=== PATIENT | female | born 1960 | race Caucasian/White ===

== ENCOUNTER 2019-07-13 07:18 | Outpatient (CLI) | payer OTHER, SELFPAY ==
--- NOTE | ~2019-07-13 | MM_ITS ---
EXAMINATION: MM screening lenny BI w shira HISTORY: Screening mammogram TECHNIQUE: Craniocaudal and mediolateral oblique 3-D tomosynthesis images were obtained and synthetic 2-D images were generated. CAD analysis was submitted and interpreted. COMPARISON: Comparison to multiple prior studies sequentially, with oldest reviewed study dated 07/2015. BREAST PARENCHYMAL COMPOSITION: The breasts are heterogeneously dense, which may obscure small masses . FINDINGS: There are benign breast calcifications. There is no evidence of suspicious mass, calcificat ion, or architectural distortion to suggest malignancy in either breast. There has been no suspicious interval change. IMPRESSION: 1. No mammographic evidence of malignancy. 2. Recommend routine screening mammography in one year. BI-RADS Category 2: Benign finding(s). Reviewed, dictated and finalized at location A.
== END 2019-07-13 07:19 | disposition home or self-care (01) ==
LOC: ANHIMG 07:26
PROVIDERS: Visit Provider Obstetrics & Gynecology
DX: Z12.31 Encounter for screening mammogram for malignant neoplasm of breast (principal)
CPT/HCPCS: 77063; 77067

== ENCOUNTER 2020-09-26 14:57 | Outpatient (CLI) | payer OTHER, SELFPAY ==
--- NOTE | ~2020-09-26 | MM_ITS ---
EXAMINATION: MM screening lenny BI w shira HISTORY: Screening TECHNIQUE: Craniocaudal and mediolateral oblique 3-D tomosynthesis images were obtained and synthetic 2-D images were generated. CAD analysis was submitted and interpreted. COMPARISON: Comparison to multiple prior studies sequentially, with oldest reviewed study dated 07/2015. BREAST PARENCHYMAL COMPOSITION: The breasts are heterogeneously dense, which may obscure small masses . FINDINGS: There are developing bilateral breast masses which are obscured by fibroglandular tissue. T here are scattered benign-appearing breast calcifications. No architectural distortion is identified. IMPRESSION: 1. Developing bilateral breast masses. 2. Additional mammographic views and possible breast ultrasound are recommended. BI-RADS Category 0: Incomplete: Needs additional imaging evaluation. Reviewed, dictated and finalized at location A. IMPRESSION: 1. Developing bilateral breast masses. 2. Additional mammographic views and possible breast ultrasound are recommended . BI-RADS Category 0: Incomplete: Needs additional imaging evaluation.
== END 2020-09-26 14:58 | disposition home or self-care (01) ==
LOC: ANHIMG 15:01
PROVIDERS: PCP Internal Medicine; Visit Provider Obstetrics & Gynecology
DX: Z12.31 Encounter for screening mammogram for malignant neoplasm of breast (principal); R92.8 Other abnormal and inconclusive findings on diagnostic imaging of breast
CPT/HCPCS: 77063; 77067

== ENCOUNTER 2020-11-12 11:55 | Outpatient (CLI) | payer OTHER, SELFPAY ==
--- NOTE | ~2020-11-12 | MMUS_ITS ---
EXAMINATION: MM diagnostic lenny BI w shira, US breast BI complete HISTORY: Developing bilateral breast masses reported on 09/26/2020 bilateral screening mammogram TECHNIQUE: Additional 3-D tomosynthesis images of both breasts were performed and synthetic 2-D image s were generated. CAD analysis was submitted and interpreted. High resolution bilateral complete eliana st ultrasound was performed. COMPARISON: 09/26/2020 bilateral digital screening mammogram BREAST PARENCHYMAL COMPOSITION: The breasts are heterogeneously dense, which may obscure small masses . FINDINGS: MAMMOGRAPHIC FINDINGS: There are multiple bilateral circumscribed breast masses measuring at least 10 mm or greater dimensio n. No suspicious mass or architectural distortion or malignant calcification, skin thickening or retract ion is evident. ULTRASOUND: No suspicious solid lesion or shadowing of either breast is evident. Right breast: 4:00 subareolar: 10.7 x 5.6 x 13.1 mm simple cyst 9:00 7 cm from nipple: 4.4 x 4.6 x 16.9 mm cyst 11:00: 4 mm cyst Left breast: 12:00: 9.6 mm simple cyst IMPRESSION: 1. Benign findings: Bilateral breast cysts 2. Routine mammographic screening is recommended BI-RADS Category 2: Benign finding(s). Reviewed, dictated and finalized at location A. IMPRESSION: 1. Benign findings: Bilateral breast cysts 2. Routine mammographic screening is recommended BI-RADS Category 2: Benign finding(s).
== END 2020-11-12 11:56 | disposition home or self-care (01) ==
PROVIDERS: PCP Internal Medicine; Visit Provider Student in an Organized Health Care Education/Training Program
DX: R92.8 Other abnormal and inconclusive findings on diagnostic imaging of breast (principal)
CPT/HCPCS: 76641; 77062; 77066; G0279

== ENCOUNTER 2021-09-16 07:58 | Outpatient (CLI) | payer OTHER, SELFPAY ==
--- NOTE | 2021-09-16 11:00 | NEURO_ITS ---
Impression: # Complains of numbness of left hand. # Evolving left Carpal Tunnel Syndrome. 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 # Normal needle/EMG exam. Nerve Conduction Studies Anti Sensory Summary Table Stim Site NR Peak (ms) P-T Amp (?V) Site1 Site2 Delta-P (ms) Dist (cm) Arturo (m/s) Left Median Anti Sensory (2-3nd Digit) Wrist 3.2 77.9 Wrist 2-3nd Digit 3.2 14.0 44 Wrist 3.2 79.7 Wrist 2-3nd Digit 3.2 14.0 44 Left Radial Anti Sensory (Base 1st Digit) Wrist 2.3 38.2 Wrist Base 1st Digit 2.3 0.0 Left Ulnar Anti Sensory (5th Digit) Wrist 2.5 70.7 Wrist 5th Digit 2.5 14.0 56 Motor Summary Table Stim Site NR Onset (ms) O-P Amp (mV) Site1 Site2 Delta-0 (ms) Dist (cm) Arturo (m/s) Left Median Motor (Abd Poll Brev) Wrist 3.4 2.4 Elbow Wrist 4.9 29.0 59 Elbow 8.3 2.3 Left Ulnar Motor (Abd Dig Minimi) Wrist 2.3 5.4 A Elbow Wrist 5.4 29.0 54 A Elbow 7.7 4.7 B Elbow Wrist 3.8 21.0 55 B Elbow 6.1 4.7 F Wave Studies NR F-Lat (ms) L-R F-Lat (ms) Left Median (Mrkrs) (Abd Poll Brev) 27.11 Left Ulnar (Mrkrs) (Abd Dig Min) 27.70 EMG Side Muscle Nerve Root Ins Act Fibs Amp Dur Recrt Comment Left 1stDorInt Ulnar C8-T1 Nml Nml Nml Nml Nml Left Ext Indicis Radial (Post Int) C7-8 Nml Nml Nml Nml Nml Left Ext Digitorum Radial (Post Int) C7-8 Nml Nml Nml Nml Nml Left BrachioRad Radial C5-6 Nml Nml Nml Nml Nml Left PronatorTeres Median C6-7 Nml Nml Nml Nml Nml Left Abd Poll Brev Median C8-T1 Nml Nml Nml Nml Nml MTDD
== END 2021-09-16 07:59 | disposition home or self-care (01) ==
PROVIDERS: PCP Physician Assistant; Visit Provider Internal Medicine
DX: R20.0 Anesthesia of skin (principal); G56.02 Carpal tunnel syndrome, left upper limb; G56.22 Lesion of ulnar nerve, left upper limb
CPT/HCPCS: 95886; 95909

== ENCOUNTER 2022-01-19 07:01 | Outpatient (CLI) | payer OTHER, SELFPAY ==
--- NOTE | ~2022-01-19 | MM_ITS ---
EXAMINATION: MM screening lenny BI w shira HISTORY: Screening TECHNIQUE: Craniocaudal and mediolateral oblique 3-D tomosynthesis images were obtained and synthetic 2-D images were generated. CAD analysis was submitted and interpreted. COMPARISON: Comparison to multiple prior studies sequentially, with oldest reviewed study dated 05/18. BREAST PARENCHYMAL COMPOSITION: The breasts are heterogeneously dense, which may obscure small masses FINDINGS: Bilateral breast asymmetries/masses are unchanged, previously characterized as cysts by ulmehreen briscoe. There is no evidence of suspicious mass, calcification, or architectural distortion to sugge st malignancy in either breast. There has been no suspicious interval change. IMPRESSION: 1. No mammographic evidence of malignancy. 2. Recommend routine screening mammography in one year. BI-RADS Category 2: Benign finding(s). Reviewed, dictated and finalized at location A. HERIZATION FIELD TECHNICIAN
== END 2022-01-19 07:02 | disposition home or self-care (01) ==
LOC: ANHIMG 07:04
PROVIDERS: PCP Internal Medicine; Visit Provider Obstetrics & Gynecology
DX: Z12.31 Encounter for screening mammogram for malignant neoplasm of breast (principal)
CPT/HCPCS: 77063; 77067

== ENCOUNTER 2023-02-01 07:00 | Outpatient (NON) | payer OTHER, SELFPAY | END 2023-02-01 07:01 | disposition home or self-care (01) | PROVIDERS: PCP Physician Assistant; Visit Provider Internal Medicine Gastroenterology | DX: Z12.11 Encounter for screening for malignant neoplasm of colon (principal) | CPT/HCPCS: 88305 ==

== ENCOUNTER 2023-02-01 11:05 | Day surgery (SDC) | payer OTHER, SELFPAY ==
[2023-01-21 14:16] VITALS: BMI 29.2
--- NOTE | 2023-01-27 13:09 | PM.HPGS ---
History of Present Illness History of Present Illness Consent: Risks, benefits, and alternatives have been discussed and questions answered. Patient agrees to proceed with procedure. Chief complaint: History of Polyps Narrative: Lissy De La Garza is a 62 year old female Referred for colon cancer screening. She had a tubular adenoma removed about 7 years ago. Review of Systems Review of Systems: All systems reviewed & are unremarkable except as noted in HPI and below PMFSH Family History Family History Mother Dementia Sibling , 02/17/18 Cancer Social History Social History Smoking packs per day: 1 Smoking cigarettes per day: 20.0 Years smoked: 45 Smoking pack-years: 45.00 Smoking status: Current some day smoker Tobacco type: cigarettes Second hand tobacco smoke exposure: Yes Smoking end date: 03/24/21 Additional smoking assessment comments: PT STATES SHE ONLY SMOKES OCCASIONALLY NOW. Alcohol intake: never Drinks per week: 1 Substance use: never Substance use type: does not use Lack of Transportation: No Lack of Food: Never True Current Housing: I Have Housing Concerned About Future Housing: No Difficulty Paying Gas/Electric Bills: No Difficulty Paying for Meds: No Currently Unemployed: No Education: High School Diploma/GED Difficulty w/ Childcare or Family Care: No Living arrangements: alone Occupation/Education: occupation Additional occupation/education comments: Gender identity (if verbalized by the patient): Female Sexual Orientation (if Verbalized by the Patient): Straight or Heterosexual Spiritual care concerns: No Meds Home Medications and Allergies Home Medications Medication Instructions Recorded Confirmed Type estradiol 0.025 mg/24 hr 1 patch transdermal 2XW 08/29/19 02/01/23 History semiweekly transdermal patch (Vivelle-Dot) montelukast 10 mg tablet 10 mg PO DAILY 08/29/19 02/01/23 History (Singulair) losartan 50 mg tablet 50 mg PO DAILY #90 tabs 11/17/22 02/01/23 Rx ascorbate calcium (vitamin C) 500 500 mg PO DAILY 01/21/23 02/01/23 History mg tablet calcium citrate 200 mg 1 tablet PO DAILY 01/21/23 02/01/23 History ywrpsbr-sijx-uwq D3 200 kqut-R2-xirmpoj tablet (ADVANCED Calcium) levothyroxine 112 mcg tablet 112 mcg PO DAILY #90 tabs 01/21/23 02/01/23 Rx vitamin B complex (B 1 tablet PO DAILY 01/21/23 02/01/23 History Complex-Vitamin B12 tablet) Allergies Allergy/AdvReac Type Severity Reaction Status Date / Time No Known Allergies Allergy Verified 02/01/23 12:06 Exam Const: General: alert Orientation/consciousness: patient oriented x3 Resp: Auscultation: clear to auscultation bilaterally Cardio: Rhythm: regular rhythm GI: GI Palp: Yes Soft to palpation and No Tenderness to palpation present (GI) Neuro: General: patient oriented x3 Assessment and Plan Assessment and plan (1) Colon cancer screening: Code(s): Z12.11 - Encounter for screening for malignant neoplasm of colon Status: Acute Assessment and Plan: Colonoscopy with possible biopsy or polypectomy or cautery or injection of substances.
[2023-02-01 12:07] VITALS: BP 129/78; PULSE 67; RESP 16; TEMP 36.7; O2SAT 100
--- NOTE | 2023-02-01 12:17 | WPDANESEPPF ---
Anes - Initial Pre Proc Eval Procedure: Operation Date: 02/01/23 13:30 Proposed Procedures p Colonoscopy - Dionisio Shelton MD Date/Time: 02/01/23 12:17 Surgeon: Dionisio Shelton MD Pre Op Diagnosis: History of Polyps Patient Data Age: 62 Gender: F Height: 1.68 m Weight: 81.4 kg Last Vital Signs Temp 36.7 C 02/01/23 12:07 Pulse 67 02/01/23 12:07 Resp 16 02/01/23 12:07 BP 129/78 02/01/23 12:07 Pulse Ox 100 02/01/23 12:07 O2 Del Method Room Air 02/01/23 12:07 Allergies Allergy/AdvReac Type Severity Reaction Status Date / Time No Known Allergies Allergy Verified 02/01/23 12:06 Home Medications Medication Instructions Recorded Confirmed Type estradiol 0.025 mg/24 hr 1 patch transdermal 2XW 08/29/19 02/01/23 History semiweekly transdermal patch (Vivelle-Dot) montelukast 10 mg tablet 10 mg PO DAILY 08/29/19 02/01/23 History (Singulair) losartan 50 mg tablet 50 mg PO DAILY #90 tabs 11/17/22 02/01/23 Rx ascorbate calcium (vitamin C) 500 500 mg PO DAILY 01/21/23 02/01/23 History mg tablet calcium citrate 200 mg 1 tablet PO DAILY 01/21/23 02/01/23 History vgatuzi-jwlg-gsl D3 200 sghb-H0-ypjzenq tablet (ADVANCED Calcium) levothyroxine 112 mcg tablet 112 mcg PO DAILY #90 tabs 01/21/23 02/01/23 Rx vitamin B complex (B 1 tablet PO DAILY 01/21/23 02/01/23 History Complex-Vitamin B12 tablet) Patient hx anesthesia problems: none Family hx anesthesia problems: none Results Review: All pre-operative results and documents have been reviewed as part of the pre-operative evaluation. [facility] Family History Family History Mother Dementia Sibling , 02/17/18 Cancer Social History Social History Smoking packs per day: 1 Smoking cigarettes per day: 20.0 Years smoked: 45 Smoking pack-years: 45.00 Smoking status: Current some day smoker Tobacco type: cigarettes Second hand tobacco smoke exposure: Yes Smoking end date: 03/24/21 Additional smoking assessment comments: PT STATES SHE ONLY SMOKES OCCASIONALLY NOW. 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 Gender identity (if verbalized by the patient): Female Sexual Orientation (if Verbalized by the Patient): Straight or Heterosexual Spiritual care concerns: No Anes - Eval Final PreProcedure Day of Procedure 02/01/23 12:17 Patient weight: overweight Heart: regular rate and rhythm Lungs: decreased breath sounds Airway: Mallampati scale class II Neurological: alert and oriented Last oral intake: >/= 8 hours ASA classification: III Emergent: no Anesthetic plan: proceed Anesthesia type and monitoring: general GIVS and standard monitoring Results Review: All pre-operative results and documents have been reviewed as part of the pre-operative evaluation. Informed Consent: The patient's anesthetic plan and its attendant risks and benefits were discussed with the patient/family/POA. Questions were solicited and answers provided to the satisfaction of the patient/family/POA.
[2023-02-01] MEDS: LACTATED RINGERS 1,000 ML 150 ML IV CONT (12:19)
[2023-02-01 12:58] VITALS: BP 116/66; PULSE 60; RESP 16; O2SAT 100
[2023-02-01 13:08] VITALS: BP 133/79; PULSE 76; RESP 18; O2SAT 100
[2023-02-01 13:18] VITALS: BP 131/70; PULSE 70; RESP 18; O2SAT 100
--- NOTE | 2023-02-01 13:59 | WPDANESPN ---
Anes - Prog Note Post-Op Date/Time: 02/01/23 13:59 Cardiovascular status: normal Respiratory status: normal Airway patency: baseline Mental status: baseline Post-Op hydration status: normal Vital Signs: Last Vital Signs Temp 36.7 C 02/01/23 12:07 Pulse 70 02/01/23 13:18 Resp 18 02/01/23 13:18 BP 131/70 02/01/23 13:18 Pulse Ox 100 02/01/23 13:18 O2 Del Method Room Air 02/01/23 13:18 Pain Score (VAS): 0 I/O: Intake & Output 01/31/23 02/01/23 02/01/23 23:59 07:59 15:59 Intake Total 350 Balance 350 Patient Feedback: Patient satisfied with anesthetic care.
== END 2023-02-01 13:35 | disposition home or self-care (01) ==
PROVIDERS: PCP Physician Assistant; Visit Provider Internal Medicine Gastroenterology
PROC: 0DJD8ZZ Inspection of Lower Intestinal Tract, Via Natural or Artificial Opening Endoscopic (ICD-10-PCS; CPT 45378; principal; 2023-02-01 13:30)
DX: Z12.11 Encounter for screening for malignant neoplasm of colon (principal); D12.8 Benign neoplasm of rectum; K57.30 Diverticulosis of large intestine without perforation or abscess without bleeding; K64.8 Other hemorrhoids
CPT/HCPCS: 45380

== ENCOUNTER 2024-02-07 07:35 | Outpatient (CLI) | payer OTHER, SELFPAY ==
--- NOTE | ~2024-02-07 | MM_ITS ---
EXAMINATION: MM screening lenny BI w shira HISTORY: Screening TECHNIQUE: Craniocaudal and mediolateral oblique 3-D tomosynthesis images were obtained and synthetic 2-D images were generated. CAD analysis was submitted and interpreted. COMPARISON: Comparison to multiple prior studies sequentially, with oldest reviewed study dated 05/24. BREAST PARENCHYMAL COMPOSITION: Dense: The breasts are heterogeneously dense, which may obscure small masses FINDINGS: Stable obscured mass in the upper outer quadrant of the right breast, likely benign intrama mmary lymph node. No new masses, calcifications or architectural distortion in either breast to sugge st malignancy. IMPRESSION: 1. No mammographic evidence of malignancy. 2. Recommend routine screening mammography in one year. BI-RADS Category 2: Benign finding(s). .. Reviewed, dictated and finalized at location B. IAL NEEDS TEACHER
== END 2024-02-07 07:36 | disposition home or self-care (01) ==
PROVIDERS: PCP Physician Assistant; Visit Provider Obstetrics & Gynecology
DX: Z12.31 Encounter for screening mammogram for malignant neoplasm of breast (principal)
CPT/HCPCS: 77063; 77067

== ENCOUNTER 2025-02-08 07:27 | Outpatient (CLI) | payer OTHER, SELFPAY ==
--- NOTE | ~2025-02-08 | MM_ITS ---
EXAMINATION: MM screening lenny BI w shira HISTORY: Screening TECHNIQUE: Craniocaudal and mediolateral oblique 3-D tomosynthesis images were obtained and synthetic 2-D images were generated. CAD analysis was submitted and interpreted. COMPARISON: Comparison to multiple prior studies sequentially, with oldest reviewed study dated 06/06/2018. BREAST PARENCHYMAL COMPOSITION: Dense: The breasts are heterogeneously dense, which may obscure small masses FINDINGS: There is no evidence of suspicious mass, calcification, or architectural distortion to suggest malignancy in either breast. There has been no suspicious interval change. IMPRESSION: 1. No mammographic evidence of malignancy. 2. Recommend routine screening mammography in one year. BI-RADS Category 1: Negative Reviewed, dictated and finalized at location I. T COAT OPERATOR
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
== END 2025-02-08 07:28 | disposition home or self-care (01) ==
LOC: ANHFOHIMG 07:30
PROVIDERS: PCP Nurse Practitioner; Visit Provider Obstetrics & Gynecology
DX: Z12.31 Encounter for screening mammogram for malignant neoplasm of breast (principal)
CPT/HCPCS: 77063; 77067